=== PATIENT | female | born 1975 | race Caucasian/White ===

== ENCOUNTER 2018-07-01 12:05 | Emergency (ER) | payer OTHER ==
[2018-07-01] MEDS ORDERED: Albuterol/Ipratropium 3.0-0.5 MG/3 ML Neb Soln NEB ONE (12:15)
[2018-07-01] MEDS ORDERED: Ondansetron 4 MG/2 ML SDV IVPUSH ONE (12:16)
[2018-07-01] MEDS ORDERED: Ketorolac 30 MG/ML SDV IVPUSH ONE (12:16)
[2018-07-01] MEDS ORDERED: Sodium Chloride 0.9% 1,000 ML IV ONE ×2 (12:16→13:31)
--- NOTE | 2018-07-01 12:25 | EDM.PDOC ---
ED HPI GENERAL MEDICAL PROBLEM - General Chief Complaint: General Stated Complaint: HEAD AND CHEST COLD Time Seen by Provider: 07/01/18 12:10 Source of Information: Reports: Patient History Limitations: Reports: No Limitations - History of Present Illness INITIAL COMMENTS - FREE TEXT/NARRATIVE: HISTORY AND PHYSICAL: History of present illness: Patient is a 42-year-old female who presents to the ED today with concern of cough, and body aches 7-10 days. Patient states she does have a history of Crohn's s/p ileostomy. She states that she has had a decrease in appetite as well as lost 10 pounds over the past week to week due to not wanting to eat. She states she does not have nausea but this has no willingness to eat or drink. Her main concern is the cough and body aches. Patient denies fever, chills, chest pain, shortness of breath. Denies headache, neck stiff ness, change in vision, syncope, or near syncope. Denies vomiting, abdominal pain, diarrhea, constipation, or dysuria. Has not noted any blood in urine or stool. Patient does have a history of Crohn's s/p colon resection but denies any other health history. She is not on any medications for her Crohn's. Review of systems: As per history of present illness and below otherwise all systems reviewed and negative. Past medical history: As per history of present illness and as reviewed below otherwise noncontributory. Surgical history: As per history of present illness and as reviewed below otherwise noncontributory. Social history: See social history for further information Family history: As per history of present illness and as reviewed below otherwise noncontributory. Physical exam: General: Patient is alert, oriented, and in no acute distress. She is tired appearing but is sitting comfortably on exam. HEENT: Atraumatic, normocephalic, pupils equal and reactive bilaterally, negative for conjunctival pallor or scleral icterus, mucous membranes dry, lips cracked, TMs normal bilaterally, throat clear, neck supple, nontender, trachea midline. No drooling or trismus noted. No meningeal signs. No hot potato voice noted. Lungs: There is high pitched wheezes heard throughout right lung kim, left is clear to auscultation, breath sounds equal bilaterally, chest nontender. Heart: S1S2, regular rate and rhythm without overt murmur Abdomen: Soft, nondistended, nontender. Negative for masses or hepatosplenomegaly. Negative for costovertebral tenderness. Pelvis: Stable nontender. Genitourinary: Deferred. Rectal: Deferred. Skin: Intact, warm, dry. No lesions or rashes noted. Extremities: Atraumatic, negative for cords or calf pain. Neurovascular unremarkable. Neuro: Awake, alert, oriented. Cranial nerves II through XII unremarkable. Cerebellum unremarkable. Motor and sensory unremarkable throughout. Exam nonfocal. Notes: On exam, patient does appear to be dehydrated. Will do labs and imaging today. Labs and imaging today are reassuming. However, due to the length of patients symptoms will treat with antibiotic. Patient does express improvement of symptoms with therapeutics today. Discussed the importance of follow-up with her primary care provider. Supportive care measures were reviewed and discussed. Voices understanding and is agreeable to plan of care. Denies any further questions or concerns at this time. Diagnostics: CBC, CMP, chest x-ray, UA, influenza, strep Therapeutics: Saline, Toradol, Zofran, duoneb Prescription: Azithromycin, Proventil, Zofran Impression: Dehydration Bronchitis h/o Crohn colitis Plan: 1. Take medications and inhaler as prescribed. Encourage small but frequent sips of fluids to help with dehydration. 2. Follow up with your primary care provider as discussed. 3. Return to the ED as needed and as discussed. Definitive disposition and diagnosis as appropriate pending reevaluation and review of above. Generalized Pain Score (Numeric/FACES): 6 - Related Data Allergies Allergy/AdvReac Type Severity Reaction Status Date / Time iron dextran complex Allergy throat Verified 07/01/18 12:14 swelling iron sucrose Allergy leg Uncoded 07/01/18 12:14 swelling Home Meds: Home Meds . [No Known Home Meds] 07/01/18 [History] Past Medical History HEENT History: Reports: Impaired Vision, Other (See Below) Other HEENT History: patient wear glasses Cardiovascular History: Reports: None Respiratory History: Reports: None Gastrointestinal History: Reports: Other (See Below) Other Gastrointestinal History: chron's Genitourinary History: Reports: None CONE SEWER History: Reports: Musculoskeletal History: Reports: None Neurological History: Reports: None Psychiatric History: Reports: None Endocrine/Metabolic History: Reports: None Hematologic History: Reports: None Immunologic History: Reports: None Oncologic (Cancer) History: Reports: None Dermatologic History: Reports: None - Infectious Disease History Infectious Disease History: Reports: Chicken Pox - Past Surgical History Head Surgeries/Procedures: Reports: None Cardiovascular Surgical History: Reports: None Respiratory Surgical History: Reports: None GI Surgical History: Reports: Appendectomy, Colostomy, Other (See Below) Other GI Surgeries/Procedures: Has an ileostomy Female Surgical History: Reports: Section Endocrine Surgical History: Reports: None Neurological Surgical History: Reports: None Social & Family History - Family History Family Medical History: Noncontributory HEENT: Reports: Impaired Vision Other Respiratory Family Hisory: brother has asthma OBGYN: Reports: Endocrine/Metabolic: Reports: Other (See Below) Other Endocrine/Metabolic Family History: thyroid problem ( patient dont know what kind) Oncologic: Reports: Breast - Tobacco Use Smoking Status *Q: Current Every Day Smoker Years of Tobacco use: 25 Packs/Tins Daily: 1 - Caffeine Use Caffeine Use: Reports: Coffee - Recreational Drug Use Recreational Drug Use: No ED ROS GENERAL - Review of Systems Review Of Systems: ROS reveals no pertinent complaints other than HPI. ED EXAM, GENERAL - Physical Exam Exam: See Below (See dictation) Course - Vital Signs Last Recorded V/S: Last Vital Signs Temp 35.9 C 07/01/18 12:11 Pulse 115 H 07/01/18 12:11 Resp 18 07/01/18 12:11 BP 118/84 07/01/18 12:11 Pulse Ox 93 L 07/01/18 12:11 - Orders/Labs/Meds Orders: Active Orders 24 hr Category Date Time Status RT Aerosol Therapy [RC] ASDIRECTED Care 07/01/18 12:16 Active CULTURE STREP A CONFIRMATION [RM] Stat Lab 07/01/18 13:10 Results STREP SCRN A RAPID W CULT CONF [RM] Stat Lab 07/01/18 13:10 Results UA RFX SALMA AND CULT IF INDIC [URIN] Stat Lab 07/01/18 12:25 Ordered Sodium Chloride 0.9% [Normal Saline] 1,000 ml Med 07/01/18 13:31 Ordered IV STAT Medication Orders Sodium Chloride (Normal Saline) 1,000 mls @ 999 mls/hr IV STAT ONE Stop: 07/01/18 14:31 Last Admin: 07/01/18 13:33 Dose: 999 mls/hr Labs: Laboratory Tests 07/01/18 07/01/18 Range/Units 12:48 12:48 WBC 5.48 (4.0-11.0) K/uL RBC 6.32 H (4.30-5.90) M/uL Hgb 17.6 H (12.0-16.0) g/dL Hct 50.7 H (36.0-46.0) % MCV 80.2 (80.0-98.0) fL MCH 27.8 (27.0-32.0) pg MCHC 34.7 (31.0-37.0) g/dL RDW Std Deviation 42.1 (28.0-62.0) fl RDW Coeff of Addy 15 (11.0-15.0) % Plt Count 183 (150-400) K/uL MPV 10.80 (7.40-12.00) fL Neut % (Auto) 59.1 (48.0-80.0) % Lymph % (Auto) 29.9 (16.0-40.0) % Gage % (Auto) 10.4 (0.0-15.0) % Eos % (Auto) 0.4 (0.0-7.0) % Baso % (Auto) 0.2 (0.0-1.5) % Neut # (Auto) 3.2 (1.4-5.7) K/uL Lymph # (Auto) 1.6 (0.6-2.4) K/uL Gage # (Auto) 0.6 (0.0-0.8) K/uL Eos # (Auto) 0.0 (0.0-0.7) K/uL Baso # (Auto) 0.0 (0.0-0.1) K/uL Nucleated RBC % 0.0 /100WBC Nucleated RBCs # 0 K/uL Sodium 135 L (136-145) mmol/L Potassium 4.0 (3.5-5.1) mmol/L Chloride 97 L (98-107) mmol/L Carbon Dioxide 27.5 (21.0-32.0) mmol/L BUN 22 H (7.0-18.0) mg/dL Creatinine 1.2 H (0.6-1.0) mg/dL Est Cr Clr Drug Dosing 48.84 mL/min Estimated GFR (MDRD) 48.8 ml/min Glucose 113 H (74-106) mg/dL Calcium 10.0 (8.5-10.1) mg/dL Total Bilirubin 0.4 (0.2-1.0) mg/dL AST 21 (15-37) IU/L ALT 26 (14-63) IU/L Alkaline Phosphatase 83 (46-116) U/L Total Protein 9.0 H (6.4-8.2) g/dL Albumin 4.0 (3.4-5.0) g/dL Globulin 5.0 H (2.6-4.0) g/dL Albumin/Globulin Ratio 0.8 L (0.9-1.6) Meds: Medications Generic Name Dose Route Start Last Admin Trade Name Freq PRN Reason Stop Dose Admin Sodium Chloride 1,000 mls @ 999 mls/hr 07/01/18 13:31 07/01/18 13:33 Normal Saline IV 07/01/18 14:31 999 mls/hr STAT ONE Administration Discontinued Medications Generic Name Dose Route Start Last Admin Trade Name Freq PRN Reason Stop Dose Admin Albuterol/Ipratropium 3 ml 07/01/18 12:15 07/01/18 12:21 Duoneb 3.0-0.5 Mg/3 Ml NEB 07/01/18 12:16 3 ml ONETIME ONE Administration Sodium Chloride 1,000 mls @ 999 mls/hr 07/01/18 12:16 07/01/18 12:50 Normal Saline IV 07/01/18 13:16 999 mls/hr STAT ONE Administration Ketorolac Tromethamine 30 mg 07/01/18 12:16 07/01/18 12:50 Toradol IVPUSH 07/01/18 12:17 30 mg ONETIME ONE Administration Ondansetron HCl 4 mg 07/01/18 12:16 07/01/18 12:50 Zofran IVPUSH 07/01/18 12:17 4 mg ONETIME ONE Administration Departure - Departure Time of Disposition: 13:37 Disposition: Home, Self-Care 01 Clinical Impression: Dehydration, Bronchitis, History of Crohn's disease - Discharge Information Instructions: Dehydration, Adult, [id number], Upper Respiratory Infection, Adult, [id number] Referrals: PCP,Unknown [Primary Care Provider] - Forms: ED Department Discharge Additional Instructions: The following information is given to patients seen in the emergency department who are being discharged to home. This information is to outline your options for follow-up care. We provide all patients seen in our emergency department with a follow-up referral. The need for follow-up, as well as the timing and circumstances, are variable depending upon the specifics of your emergency department visit. If you don't have a primary care physician on staff, we will provide you with a referral. We always advise you to contact your personal physician following an emergency department visit to inform them of the circumstance of the visit and for follow-up with them and/or the need for any referrals to a consulting specialist. The emergency department will also refer you to a specialist when appropriate. This referral assures that you have the opportunity for follow-up care with a specialist. All of these measure are taken in an effort to provide you with optimal care, which includes your follow-up. Under all circumstances we always encourage you to contact your private physician who remains a resource for coordinating your care. When calling for follow-up care, please make the office aware that this follow-up is from your recent emergency room visit. If for any reason you are refused follow-up, please contact the [facility] Emergency Department at and asked to speak to the emergency department charge nurse. [facility] [address] [place] [id number] [place] [address] 1. Take medications and inhaler as prescribed. Encourage small but frequent sips of fluids to help with dehydration. 2. Follow up with your primary care provider as discussed. 3. Return to the ED as needed and as discussed. - My Orders Last 24 Hours: My Active Orders 07/01/18 12:16 RT Aerosol Therapy [RC] ASDIRECTED 07/01/18 12:25 UA RFX SALMA AND CULT IF INDIC [URIN] Stat 07/01/18 13:10 CULTURE STREP A CONFIRMATION [RM] Stat STREP SCRN A RAPID W CULT CONF [RM] Stat 07/01/18 13:31 Sodium Chloride 0.9% [Normal Saline] 1,000 ml IV STAT - Assessment/Plan Last 24 Hours: My Active Orders 07/01/18 12:16 RT Aerosol Therapy [RC] ASDIRECTED 07/01/18 12:25 UA RFX SALMA AND CULT IF INDIC [URIN] Stat 07/01/18 13:10 CULTURE STREP A CONFIRMATION [RM] Stat STREP SCRN A RAPID W CULT CONF [RM] Stat 07/01/18 13:31 Sodium Chloride 0.9% [Normal Saline] 1,000 ml IV STAT
--- NOTE | 2018-07-01 13:14 | CR ---
INDICATION: Cough TECHNIQUE: Two view chest. FINDINGS: The lungs are clear. The heart, mediastinum and pulmonary vessels are of normal size. There is no evidence of pleural disease. IMPRESSION: Negative chest. Dictated by Shaina Meza MD @ Jul 01 2018 1:12PM Signed by Dr. Shaina Meza @ Jul 01 2018 1:12PM
[2018-07-01 14:23] VITALS: BP 106/74
== END 2018-07-01 14:32 | disposition home or self-care (01) ==
LOC: MW.ED 12:05
DX: J40 Bronchitis, not specified as acute or chronic (principal); E86.0 Dehydration; K50.90 Crohn's disease, unspecified, without complications; F17.210 Nicotine dependence, cigarettes, uncomplicated; Z88.8 Allergy status to other drugs, medicaments and biological substances
CPT/HCPCS: 71046; 80053; 85025; 87081; 87804; 87880; 94640; 96361; 96374; 96375; 99283; J1885; J2405; J7040; J7620-GY

== ENCOUNTER 2022-11-27 10:57 | Emergency (ER) | payer OTHER ==
[2022-11-27] MEDS ORDERED: Sodium Chloride 0.9% 2.5 ML Syringe FLUSH PRN (12:02)
[2022-11-27] MEDS ORDERED: Lactated Ringers 1,000 ML IV STA ×2 (12:03→13:36)
[2022-11-27] MEDS ORDERED: Ketorolac 30 MG/ML SDV IVPUSH STA (12:03)
[2022-11-27] MEDS ORDERED: Ondansetron 4 MG/2 ML SDV IVPUSH STA (12:03)
[2022-11-27 12:43] LABS: BASOPHILS PERCENT AUTO 0.1 % (0.0-1.5); EOSINOPHILS PERCENT AUTO 0.1 % (0.0-7.0); HEMATOCRIT 48.9 % (36.0-46.0); HEMOGLOBIN 16.9 g/dL (12.0-16.0); LYMPHOCYTES ABSOLUTE AUTO 0.5 K/uL (0.6-2.4); LYMPHOCYTES PERCENT AUTO 4.8 % (16.0-40.0); MEAN CORPUSCULAR HEMOGLOBIN 29.3 pg (27.0-32.0); MEAN CORPUSCULAR HGB CONC 34.6 g/dL (31.0-37.0); MEAN CORPUSCULAR VOLUME 84.9 fL (80.0-98.0); MONOCYTES ABSOLUTE AUTO 0.5 K/uL (0.0-0.8); MONOCYTES PERCENT AUTO 4.6 % (0.0-15.0); NEUTROPHILS ABSOLUTE AUTO 8.9 K/uL (1.4-5.7); NEUTROPHILS PERCENT AUTO 90.4 % (48.0-80.0); NRBC ABSOLUTE 0 K/uL; PLATELET COUNT,PLT 215 K/uL (150-400); RED BLOOD CELL COUNT 5.76 M/uL (4.30-5.90); WHITE BLOOD CELL COUNT,WBC 9.82 K/uL (4.0-11.0)
[2022-11-27] MEDS: Sodium Chloride 0.9% 10 ML Syringe FLUSH PRN ×2 (12:51→18:10)
[2022-11-27 13:03] LABS: ALBUMIN 3.9 g/dL (3.4-5.0); BILIRUBIN TOTAL 0.5 mg/dL (0.2-1.0); CALCIUM 10.6 mg/dL (8.5-10.1); CARBON DIOXIDE,CO2 27.2 mmol/L (21.0-32.0); CREATININE 0.9 mg/dL (0.6-1.0); EST CRCL DRUG DOSING (CG) 62.55 mL/min; MAGNESIUM 1.9 mg/dL (1.8-2.4); POTASSIUM,K 4.1 mmol/L (3.5-5.1)
[2022-11-27] MEDS ORDERED: Morphine 2 MG/ML SYRINGE IVPUSH STA ×2 (13:36→17:50)
[2022-11-27 13:41] LABS: APPEARANCE,URINE CLEAR; BILIRUBIN,URINE NEGATIVE (NEGATIVE); COLOR,URINE YELLOW; GLUCOSE,URINE NEGATIVE (NEGATIVE); KETONES,URINE NEGATIVE (NEGATIVE); LEUKOCYTE ESTERASE,URINE NEGATIVE (NEGATIVE); NITRITE,URINE NEGATIVE (NEGATIVE); OCCULT BLOOD,URINE NEGATIVE (NEGATIVE); PH,URINE 5.5 (5.0-8.0); PROTEIN,URINE NEGATIVE (NEGATIVE); UROBILINOGEN,URINE 0.2 EU/dL (<2.0)
[2022-11-27] MEDS ORDERED: Iopamidol 755 Mg/ML 100 ML Bottle IVPUSH ONE (16:48)
[2022-11-27 18:47] VITALS: BP 116/71; PULSE 79
== END 2022-11-27 18:47 | disposition home or self-care (01) ==
LOC: MW.ED 10:57
DX: K52.9 Noninfective gastroenteritis and colitis, unspecified (principal); Z88.8 Allergy status to other drugs, medicaments and biological substances
CPT/HCPCS: 36415; 74177; 80053; 81003; 83605; 83690; 83735; 84703; 85025; 86140; 96361; 96374; 96375; 96376; 99284; J1885; J2270; J2405; J3490; J7120; Q9967

== ENCOUNTER 2024-01-04 04:46 | Emergency (ER) | payer OTHER ==
[2024-01-04 05:05] LABS: APPEARANCE,URINE CLEAR; BILIRUBIN,URINE NEGATIVE (NEGATIVE); COLOR,URINE YELLOW; GLUCOSE,URINE NEGATIVE (NEGATIVE); KETONES,URINE NEGATIVE (NEGATIVE); LEUKOCYTE ESTERASE,URINE NEGATIVE (NEGATIVE); NITRITE,URINE NEGATIVE (NEGATIVE); OCCULT BLOOD,URINE NEGATIVE (NEGATIVE); PH,URINE 5.5 (5.0-8.0); PROTEIN,URINE NEGATIVE (NEGATIVE); UROBILINOGEN,URINE 0.2 EU/dL (<2.0)
[2024-01-04 05:10] LABS: BASOPHILS ABSOLUTE AUTO 0.02 K/uL (0.00-0.20); BASOPHILS PERCENT AUTO 0.3 % (0.0-1.0); EOSINOPHILS ABSOLUTE AUTO 0.04 K/uL (0.00-0.45); EOSINOPHILS PERCENT AUTO 0.5 % (0.0-6.0); HEMATOCRIT 47.8 % (37.0-47.0); HEMOGLOBIN 16.3 g/dL (12.0-16.0); IMMATURE GRAN ABSOLUTE AUTO 0.03 K/uL (0.00-0.05); IMMATURE GRAN PERCENT AUTO 0.4 % (0.0-0.4); LYMPHOCYTES ABSOLUTE AUTO 1.05 K/uL (1.00-4.80); LYMPHOCYTES PERCENT AUTO 13.1 % (24.0-44.0); MEAN CORPUSCULAR HEMOGLOBIN 29.1 pg (28.0-32.0); MEAN CORPUSCULAR HGB CONC 34.1 g/dL (32.0-36.0); MEAN CORPUSCULAR VOLUME 85.2 fL (83.0-99.0); MEAN PLATELET VOLUME 9.2 fL (9.4-12.3); MONOCYTES ABSOLUTE AUTO 0.47 K/uL (0.00-0.80); MONOCYTES PERCENT AUTO 5.9 % (0.0-8.0); NEUTROPHILS ABSOLUTE AUTO 6.38 K/uL (1.80-7.70); NEUTROPHILS PERCENT AUTO 79.8 % (41.0-71.0); PLATELET COUNT,PLT 191 K/uL (150-400); RED BLOOD CELL COUNT 5.61 M/uL (4.10-5.30); WHITE BLOOD CELL COUNT,WBC 7.99 K/uL (3.9-11.3)
[2024-01-04] MEDS: Sodium Chloride 0.9% 1,000 ML IV STA (05:18)
[2024-01-04] MEDS: Ondansetron 4 MG/2 ML SDV IVPUSH ONE (05:19)
[2024-01-04] MEDS: Sodium Chloride 0.9% 2.5 ML Syringe FLUSH PRN (05:19)
[2024-01-04] MEDS: Morphine 4 MG/ML Syringe IVPUSH ONE (05:19)
[2024-01-04] MEDS: Sodium Chloride 0.9% 10 ML Syringe FLUSH PRN (05:19)
[2024-01-04 05:38] LABS: ALBUMIN 3.8 g/dL (3.4-5.0); BILIRUBIN TOTAL 0.4 mg/dL (0.2-1.0); CALCIUM 9.7 mg/dL (8.5-10.1); CREATININE 0.9 mg/dL (0.6-1.0); EST CRCL DRUG DOSING (CG) 61.86 mL/min; POTASSIUM,K 3.7 mmol/L (3.5-5.1); PROTEIN TOTAL,TP 7.5 g/dL (6.4-8.2)
[2024-01-04 06:09] VITALS: BP 118/71
[2024-01-04] MEDS: Iopamidol 755 MG/ML 500 ML Multipack Bottle IVPUSH ONE (06:41)
[2024-01-04 07:43] VITALS: PULSE 74
== END 2024-01-04 07:42 | disposition home or self-care (01) ==
LOC: MW.ED 04:46
DX: R10.31 Right lower quadrant pain (principal); Z75.8 Other problems related to medical facilities and other health care; Z90.49 Acquired absence of other specified parts of digestive tract; Z88.8 Allergy status to other drugs, medicaments and biological substances
CPT/HCPCS: 36415; 74177; 74177-26; 80053; 81003; 83690; 85025; 96361; 96374; 96375; 99284-25; J2270; J2405; J3490; J7030; Q9967

== ENCOUNTER 2024-10-09 17:36 | Emergency (ER) | payer OTHER ==
[2024-10-09] MEDS: Ondansetron 4 MG/2 ML SDV IVPUSH ONE ×3 (18:02→22:14)
[2024-10-09 18:09] LABS: BASOPHILS ABSOLUTE AUTO 0.02 K/uL (0.00-0.20); BASOPHILS PERCENT AUTO 0.2 % (0.0-1.0); EOSINOPHILS ABSOLUTE AUTO 0.05 K/uL (0.00-0.45); EOSINOPHILS PERCENT AUTO 0.6 % (0.0-6.0); IMMATURE GRAN ABSOLUTE AUTO 0.02 K/uL (0.00-0.05); IMMATURE GRAN PERCENT AUTO 0.2 % (0.0-0.4); LYMPHOCYTES ABSOLUTE AUTO 1.39 K/uL (1.00-4.80); LYMPHOCYTES PERCENT AUTO 16.9 % (24.0-44.0); MEAN PLATELET VOLUME 9.9 fL (9.4-12.3); MONOCYTES ABSOLUTE AUTO 0.49 K/uL (0.00-0.80); MONOCYTES PERCENT AUTO 6.0 % (0.0-8.0); NEUTROPHILS ABSOLUTE AUTO 6.25 K/uL (1.80-7.70); NEUTROPHILS PERCENT AUTO 76.1 % (41.0-71.0); NRBC ABSOLUTE 0.00 K/uL (0.00-0.02); NRBC PERCENT 0.0 /100WBC (0.0-0.2); PLATELET COUNT,PLT 231 K/uL (150-400); RED BLOOD CELL COUNT 5.17 M/uL (4.10-5.30); WHITE BLOOD CELL COUNT,WBC 8.22 K/uL (3.9-11.3)
[2024-10-09] MEDS: Iopamidol 755 MG/ML 500 ML Multipack Bottle IVPUSH STA (18:22)
[2024-10-09 18:30] LABS: A/G RATIO 1.1 (0.9-1.6); ALANINE AMINOTRANSFERASE,ALT 31 IU/L (14-63); ASPARTATE AMNIOTRANSFERASE,AST 16 IU/L (15-37); BILIRUBIN TOTAL 0.4 mg/dL (0.2-1.0); BLOOD UREA NITROGEN,BUN 15 mg/dL (7.0-18.0); CARBON DIOXIDE,CO2 26.9 mmol/L (21.0-32.0); CHLORIDE,CL 102 mmol/L (98-107); CREATININE 0.9 mg/dL (0.6-1.0); GLUCOSE RANDOM 94 mg/dL (74-106); POTASSIUM,K 3.9 mmol/L (3.5-5.1); PROTEIN TOTAL,TP 7.1 g/dL (6.4-8.2); SODIUM,NA 138 mmol/L (136-145)
[2024-10-09 18:32] LABS: ESTIMATED GFR 77 mL/min (>60)
[2024-10-09 18:37] LABS: LACTIC ACID 1.0 mmol/L (0.4-2.0)
[2024-10-09 19:02] LABS: APPEARANCE,URINE CLEAR; GLUCOSE,URINE NEGATIVE (NEGATIVE); OCCULT BLOOD,URINE NEGATIVE (NEGATIVE)
[2024-10-09] MEDS ORDERED: Benzocaine 20% Topical Spray UD MUCMEM PRN (20:36)
[2024-10-09] MEDS ORDERED: Lidocaine 2% Viscous Solution 15 ML UD PO PRN (20:36)
[2024-10-09] MEDS: Ondansetron 4 MG/2 ML SDV ONE (22:15)
[2024-10-10] MEDS ORDERED: Naloxone 0.4 MG/ML SDV IVPUSH PRN (00:51)
[2024-10-10] MEDS ORDERED: Ondansetron 4 MG/2 ML SDV IVPUSH ONE (01:02)
[2024-10-10] MEDS: droPERidol 2.5 MG/ML SDV IVPUSH PRN (01:06)
[2024-10-10] MEDS: Ondansetron 4 MG/2 ML SDV IVPUSH ONE ×2 (04:02→06:50)
[2024-10-10] MEDS: Ketorolac 30 MG/ML SDV IVPUSH ONE (06:53)
[2024-10-10] MEDS: droPERidol 2.5 MG/ML SDV IVPUSH STA (09:10)
[2024-10-10] MEDS: Ondansetron 4 MG/2 ML SDV IVPUSH PRN (10:02)
[2024-10-10 10:47] VITALS: BP 115/68; PULSE 77
== END 2024-10-10 10:10 ==
LOC: MW.ED 17:36
DX: K56.609 Unspecified intestinal obstruction, unspecified as to partial versus complete obstruction (principal); K56.7 Ileus, unspecified; F17.200 Nicotine dependence, unspecified, uncomplicated; Z75.3 Unavailability and inaccessibility of health-care facilities; Z91.09 Other allergy status, other than to drugs and biological substances; Z79.899 Other long term (current) drug therapy; Z90.49 Acquired absence of other specified parts of digestive tract
CPT/HCPCS: 36415; 74177; 80053; 81003; 83605; 83690; 83735; 85025; 96361; 96374; 96375; 96376; 99285; J1790; J2270; J2405; J7030; Q9967; 99283; J1171